=== PATIENT | female | born 1940 | race Caucasian/White ===

== ENCOUNTER 2022-07-08 12:25 | Emergency (ER) | payer OTHER ==
[~2022-07-08] VITALS: Ht 157.5 cm; Wt 73.5 kg
[2022-07-08 12:43] VITALS: BP_SYST 143
--- NOTE | 2022-07-08 12:50 | NUR ---
Pt brought by family, A&Ox4, pt presents to ER with bilateral foot pain/swelling, skin pink and warm, cap refill <3, VSS, will cont to monitor.
--- NOTE | 2022-07-08 14:17 | NUR ---
ER examining patient.
[2022-07-08] MEDS ORDERED: KETOROLAC TROMETHAMINE 30 MG VIAL IM ONE (14:30)
--- NOTE | 2022-07-08 15:07 | NUR ---
XRAYS BEING DONE AT BEDSIDE.
[2022-07-08 15:26] LABS: BASOPHILS % (AUTO) 0.5 % (0.0-2.0); EOSINOPHILS # (AUTO) 0.1 K/uL (0.0-0.4); EOSINOPHILS % (AUTO) 2.3 % (0.0-4.0); HEMATOCRIT 30.2 % (36-48); LYMPHOCYTES # (AUTO) 1.3 K/uL (1.0-5.5); LYMPHOCYTES % (AUTO) 21.5 % (20.5-51.5); MEAN CORPUSCULAR HEMOGLOBIN 32 pg (27-31); MEAN CORPUSCULAR HGB CONC 33 % (32-36); MEAN CORPUSCULAR VOLUME 96 fL (79.0-98.0); MONOCYTES # (AUTO) 0.5 K/uL (0.0-1.0); MONOCYTES % (AUTO) 7.5 % (1.7-9.3); NEUTROPHILS # (AUTO) 4.1 K/uL (1.8-7.7); NEUTROPHILS % (AUTO) 68.2 % (40.0-70.0); PLATELET COUNT (AUTO) 276 K/uL (130-430); RED BLOOD CELL COUNT(AUTO) 3.13 MIL/uL (4.2-6.2); RED CELL DISTRIBUTION WIDTH 14.1 % (9.0-15.0)
[2022-07-08 15:58] LABS: ANION GAP 10 (5-15); CHLORIDE 105 mmol/L (98-107); CREATININE 1.11 mg/dL (0.55-1.30); GLUCOSE 102 mg/dL (70-99); UREA NITROGEN, BLOOD 25 mg/dL (8-21)
[2022-07-08 16:06] LABS: ALANINE AMINOTRANSFERASE 14 U/L (12-78); ALBUMIN 3.6 g/dL (3.4-4.8); ASPARTATE AMINOTRANSFERASE 13 U/L (10-37); C-REACTIVE PROTEIN QUANT 4.4 mg/dL (0-0.5); TOTAL BILIRUBIN 0.2 mg/dL (0.0-1.0); URIC ACID 7.8 mg/dL (2.4-7.0)
[2022-07-08 16:08] LABS: ERYTHROCYTE SEDIMENTATION RATE 63 MM/HR (0-20)
[2022-07-08] MEDS ORDERED: HYDR-3917 PO (16:19)
[2022-07-08] MEDS ORDERED: IBUP-1969 PO (16:19)
--- NOTE | 2022-07-08 16:30 | NUR ---
Patient given written and verbal discharge instructions and verbalizes understanding. ER MD discussed with patient the results and treatment provided. Patient in stable condition. ID arm band removed. Patient educated on pain management and to follow up with PMD. Opportunity for questions provided and answered. Medication side effect fact sheet provided.
[2022-07-08 17:24] VITALS: BP_SYST 164
== END 2022-07-08 16:30 | disposition home or self-care (01) ==
LOC: SED 12:25
DX: M10.9 Gout, unspecified (principal); J45.909 Unspecified asthma, uncomplicated; I10 Essential (primary) hypertension; Z79.899 Other long term (current) drug therapy
CPT/HCPCS: 99284; 80053; 84550; 85025; 85651; 86140; 36415; 73610; J1885

== ENCOUNTER 2023-07-09 16:54 | Inpatient (IN) | payer OTHER ==
[~2023-07-09] VITALS: Ht 154.9 cm; Wt 56.8 kg
[~2023-07-09 16:54] MED LIST: HYDR-3917 PO; IBUP-1969 PO
[2023-07-09 16:56] VITALS: BP_SYST 151; PULSE 108; RESP 18; TEMP 98.4; O2SAT 96
[2023-07-09] MEDS: ALBUTEROL SULFATE 0.083% 2.5 MG/3 ML VIAL.NEB INH ONE (17:17)
[2023-07-09] MEDS: IPRATROPIUM BROM 0.5 MG/2.5 ML VIAL.NEB (ATROVENT) INH ONE (17:17)
[2023-07-09 17:46] LABS: BASOPHILS % (AUTO) 0.5 % (0.0-2.0); EOSINOPHILS % (AUTO) 0.9 % (0.0-4.0); LYMPHOCYTES # (AUTO) 1.1 K/uL (1.0-5.5); LYMPHOCYTES % (AUTO) 19.3 % (20.5-51.5); MEAN CORPUSCULAR HEMOGLOBIN 22 pg (27-31); MEAN CORPUSCULAR HGB CONC 31 % (32-36); MEAN CORPUSCULAR VOLUME 71 fL (79.0-98.0); MONOCYTES # (AUTO) 0.4 K/uL (0.0-1.0); MONOCYTES % (AUTO) 6.6 % (1.7-9.3); NEUTROPHILS # (AUTO) 4.2 K/uL (1.8-7.7); NEUTROPHILS % (AUTO) 72.7 % (40.0-70.0); PLATELET COUNT (AUTO) 312 K/uL (130-430); WHITE BLOOD COUNT (AUTO) 5.7 K/uL (4.8-10.8)
[2023-07-09 17:58] LABS: HEMOGLOBIN 4.5 g/dL (12.0-16.0)
[2023-07-09 17:59] LABS: HEMATOCRIT 14.9 % (36-48)
[2023-07-09 18:15] LABS: ALANINE AMINOTRANSFERASE 15 U/L (12-78); ALBUMIN 2.9 g/dL (3.4-4.8); ANION GAP 7 (5-15); ASPARTATE AMINOTRANSFERASE 12 U/L (10-37); CALCIUM 7.9 mg/dL (8.4-11.0); CARBON DIOXIDE 24 mmol/L (23-29); CHLORIDE 109 mmol/L (98-107); CREATININE 0.75 mg/dL (0.55-1.30); GLUCOSE 101 mg/dL (74-106); SODIUM SERUM 140 mmol/L (136-145); TOTAL BILIRUBIN 0.2 mg/dL (0.0-1.0); TOTAL PROTEIN, SERUM 6.7 g/dL (6.4-8.3); UREA NITROGEN, BLOOD 16 mg/dL (8-21)
[2023-07-09 18:19] LABS: INR 1.1 (0.8-1.2); PROTHROMBIN TIME 11.3 SECS (9.5-12.5)
[2023-07-09 18:20] LABS: BILIRUBIN,DIRECT 0.1 mg/dL (0.0-0.3)
[2023-07-09 18:39] LABS: COVID19 ANTIGEN SOFIA FIA NEGATIVE (NEGATIVE)
[2023-07-09 18:48] LABS: INFLUENZA TYPE A Negative (NEGATIVE); INFLUENZA TYPE B NEGATIVE (NEGATIVE)
[2023-07-09] MEDS ORDERED: ZOLPIDEM TARTRATE 5 MG TABLET PO PRN (19:00)
[2023-07-09] MEDS ORDERED: MUPIROCIN 2% TOPICAL OINTMENT 22 GM NS PRN (19:00)
[2023-07-09] MEDS ORDERED: POTASSIUM CHLORIDE 20 MEQ TABLET.ER PO PRN (19:00)
[2023-07-09] MEDS ORDERED: DOCUSATE SODIUM 100 MG CAPSULE PO PRN (19:00)
[2023-07-09] MEDS ORDERED: LORazepam 2 MG/ML VIAL IVP PRN (19:00)
[2023-07-09] MEDS ORDERED: MORPHINE 2 MG/ML INJ. SYRINGE IVP PRN ×2 (19:00)
[2023-07-09] MEDS ORDERED: ONDANSETRON HCL 4 MG/2 ML VIAL IVP PRN (19:00)
[2023-07-09] MEDS ORDERED: ACETAMINOPHEN 500 MG TABLET PO PRN ×3 (19:30)
[2023-07-09 19:43] LABS: TOTAL IRON BIND. CAPACITY 366 ug/dL (250-450)
[2023-07-09 19:56] LABS: ANISOCYTOSIS 1+; HYPOCHROMASIA 3+; OVALOCYTES FEW; STOMATOCYTES FEW
[2023-07-09] MEDS: METOPROLOL TARTRATE 25 MG TABLET PO SCH (21:00)
[2023-07-09 21:04] LABS: BILIRUBIN,URINE NEGATIVE (NEGATIVE); BLOOD, URINE 1+ (NEGATIVE); CLARITY/URINE CLEAR (CLEAR); COLOR,URINE YELLOW (YELLOW); GLUCOSE,URINE NEGATIVE (NEGATIVE); KETONES,URINE NEGATIVE (NEGATIVE); LEUKOCYTE ESTERASE ,URINE NEGATIVE (NEGATIVE); NITRITE, URINE NEGATIVE (NEGATIVE); PROTEIN URINE NEGATIVE (NEGATIVE); UROBILINOGEN,URINE 0.2 (0.2-1.0)
[2023-07-09] MEDS: FERROUS SULFATE 325 MG TABLET.DR PO SCH (21:23)
[2023-07-09] MEDS: METOPROLOL TARTRATE 25 MG TABLET PO ONE (21:24)
[2023-07-09] MEDS: D5NS 1,000 ML IV SCH (21:25)
[2023-07-09 21:55] VITALS: BP_SYST 142; PULSE 108; O2SAT 95
[2023-07-09 22:31] LABS: BACTERIA,URINE FEW /HPF (None Seen); MUCUS,URINE 2+ /LPF (None Seen); WBC,URINE 0-3 /HPF (0-3)
[2023-07-10] MEDS: SOD FERRIC GLUC COMPLEX/SUC 125 MG in NS 100 ML IV SCH (02:28)
[2023-07-10] MEDS: SOD FERRIC GLUC COMPLEX/SUC 62.5 MG/5 ML VIAL (FERRLECIT) IV ONE (02:36)
[2023-07-10 06:15] LABS: BASOPHILS % (AUTO) 0.5 % (0.0-2.0); EOSINOPHILS # (AUTO) 0.1 K/uL (0.0-0.4); HEMATOCRIT 26.5 % (36-48); HEMOGLOBIN 8.6 g/dL (12.0-16.0); LYMPHOCYTES # (AUTO) 1.3 K/uL (1.0-5.5); LYMPHOCYTES % (AUTO) 21.4 % (20.5-51.5); MEAN CORPUSCULAR HEMOGLOBIN 25 pg (27-31); MEAN CORPUSCULAR HGB CONC 33 % (32-36); MEAN CORPUSCULAR VOLUME 78 fL (79.0-98.0); MONOCYTES # (AUTO) 0.5 K/uL (0.0-1.0); NEUTROPHILS # (AUTO) 4.3 K/uL (1.8-7.7); NEUTROPHILS % (AUTO) 69.1 % (40.0-70.0); PLATELET COUNT (AUTO) 261 K/uL (130-430); RED BLOOD CELL COUNT(AUTO) 3.41 MIL/uL (4.2-6.2); RED CELL DISTRIBUTION WIDTH 20.9 % (9.0-15.0); WHITE BLOOD COUNT (AUTO) 6.2 K/uL (4.8-10.8)
[2023-07-10 06:34] LABS: ANION GAP 10 (5-15); CARBON DIOXIDE 20 mmol/L (23-29); CHLORIDE 109 mmol/L (98-107); CREATININE 0.82 mg/dL (0.55-1.30); GLUCOSE 107 mg/dL (74-106); POTASSIUM 3.8 mmol/L (3.5-5.1); SODIUM SERUM 139 mmol/L (136-145); UREA NITROGEN, BLOOD 18 mg/dL (8-21)
[2023-07-10] MEDS: MAGNESIUM SULFATE 50 ML IV PRN (06:54)
[2023-07-10] MEDS: IPRATROPIUM/ALBUTEROL SULFATE 3 ML AMPUL.NEB (DUONEB) INH PRN (07:12)
[2023-07-10 07:13] VITALS: O2SAT 95
[2023-07-10] MEDS ORDERED: FUROSEMIDE 20 MG/2 ML VIAL IVP SCH (09:00)
[2023-07-10] MEDS: PANTOPRAZOLE SODIUM 40 MG/VIAL (PROTONIX) IVP SCH (10:10)
[2023-07-10 10:29] VITALS: BP_SYST 138; PULSE 88; RESP 18; TEMP 97.2; O2SAT 98
[2023-07-10] MEDS ORDERED: BUDESONIDE/FORMOTEROL 160-4.5 mCg, 6 GM INHALER INH SCH (10:30)
[2023-07-10 12:00] VITALS: BP_SYST 138; PULSE 88; RESP 18; TEMP 97.2; O2SAT 98
[2023-07-10 12:44] LABS: RED CELL DISTRIBUTION WIDTH 19.5 % (9.0-15.0)
[2023-07-10] MEDS ORDERED: HYDROcodone/ACETAMIN 5-325 MG TAB (NORCO/ VICODIN) PO PRN (15:15)
[2023-07-10] MEDS: ALBUTEROL SULFATE 0.083% 2.5 MG/3 ML VIAL.NEB INH SCH (15:31)
[2023-07-10 16:00] VITALS: BP_SYST 133; PULSE 85; RESP 18; TEMP 97.3; O2SAT 98
[2023-07-10] MEDS: BISACODYL 5 MG TABLET.DR (DULCOLAX) PO ONE (17:21)
[2023-07-10] MEDS: GOLYTELY / COLYTE SOLUTION 4 LITERS PO ONE (17:21)
[2023-07-10] MEDS: MONTELUKAST 10 MG TABLET PO SCH (17:21)
[2023-07-10 19:30] VITALS: O2SAT 97
[2023-07-10 20:00] VITALS: BP_SYST 155; PULSE 98; RESP 18; TEMP 97.8; O2SAT 99
[2023-07-10] MEDS: BUDESONIDE 0.5 MG/2 ML AMPUL.NEB INH SCH (20:01)
[2023-07-10] MEDS: ATORVASTATIN 20 MG TABLET PO SCH (20:30)
[2023-07-11 02:07] VITALS: BP_SYST 144; PULSE 88; RESP 18; TEMP 97.6; O2SAT 99
[2023-07-11 06:07] LABS: BASOPHILS % (AUTO) 0.3 % (0.0-2.0); EOSINOPHILS # (AUTO) 0.2 K/uL (0.0-0.4); HEMATOCRIT 29.1 % (36-48); HEMOGLOBIN 9.2 g/dL (12.0-16.0); LYMPHOCYTES # (AUTO) 1.2 K/uL (1.0-5.5); LYMPHOCYTES % (AUTO) 13.1 % (20.5-51.5); MEAN CORPUSCULAR HEMOGLOBIN 25 pg (27-31); MEAN CORPUSCULAR HGB CONC 32 % (32-36); MEAN CORPUSCULAR VOLUME 78 fL (79.0-98.0); MONOCYTES # (AUTO) 0.6 K/uL (0.0-1.0); MONOCYTES % (AUTO) 6.9 % (1.7-9.3); NEUTROPHILS # (AUTO) 6.9 K/uL (1.8-7.7); NEUTROPHILS % (AUTO) 77.7 % (40.0-70.0); PLATELET COUNT (AUTO) 299 K/uL (130-430); RED BLOOD CELL COUNT(AUTO) 3.72 MIL/uL (4.2-6.2); RED CELL DISTRIBUTION WIDTH 20.7 % (9.0-15.0)
[2023-07-11 06:21] LABS: INR 1.1 (0.8-1.2); PROTHROMBIN TIME 11.3 SECS (9.5-12.5)
[2023-07-11 07:11] LABS: ANION GAP 11 (5-15); CALCIUM 8.8 mg/dL (8.4-11.0); CARBON DIOXIDE 22 mmol/L (23-29); CHLORIDE 105 mmol/L (98-107); CREATININE 0.77 mg/dL (0.55-1.30); GLUCOSE 99 mg/dL (74-106); POTASSIUM 3.3 mmol/L (3.5-5.1); SODIUM SERUM 138 mmol/L (136-145); UREA NITROGEN, BLOOD 7 mg/dL (8-21)
[2023-07-11 08:00] VITALS: BP_SYST 122; PULSE 105; RESP 18; TEMP 98.6; O2SAT 98
[2023-07-11] MEDS: ALLOPURINOL 100 MG TABLET (ZYLOPRIM) PO SCH (08:16)
[2023-07-11] MEDS: COLCHICINE 0.6 MG TABLET PO SCH (08:16)
[2023-07-11] MEDS: lisinopriL 20 MG TABLET PO SCH (08:16)
[2023-07-11 08:34] LABS: WHITE BLOOD COUNT (AUTO) 8.8 K/uL (4.8-10.8)
[2023-07-11 08:40] VITALS: O2SAT 98
[2023-07-11 11:06] LABS: FOLATE (FOLIC ACID) 13.6 ng/mL (>3.0)
[2023-07-11] MEDS: fentaNYL CITRATE/PF 100 MCG/2 ML AMP ONE (11:52)
[2023-07-11] MEDS: MIDAZOLAM HCL 5 MG/5 ML VIAL ONE (11:53)
[2023-07-11 12:00] VITALS: BP_SYST 120; PULSE 100; RESP 18; TEMP 98.1; O2SAT 98
[2023-07-11] MEDS ORDERED: FERR324T11 PO (15:59)
[2023-07-11] MEDS ORDERED: PANT40TA45 PO (15:59)
[2023-07-11 16:00] VITALS: BP_SYST 118; PULSE 99; RESP 18; TEMP 98.7; O2SAT 98
[2023-07-11] MEDS: POTASSIUM CHLORIDE 20 MEQ TABLET.ER PO ONE (16:13)
[2023-07-11 17:37] VITALS: BP_SYST 120; PULSE 98; RESP 18; TEMP 98.1; O2SAT 97
== END 2023-07-11 18:55 | disposition home or self-care (01) | DRG 811 ==
LOC: SED 16:54 → STU 19:04 → SMU 07-10 20:38
PROVIDERS: ADMIT General Practice; ATTEND General Practice
PROC: 30233N1 Transfusion of Nonautologous Red Blood Cells into Peripheral Vein, Percutaneous Approach (ICD-10-PCS; 2023-07-09)
PROC: 0DB78ZX Excision of Stomach, Pylorus, Via Natural or Artificial Opening Endoscopic, Diagnostic (ICD-10-PCS; principal; 2023-07-11 10:00)
DX: D50.9 Iron deficiency anemia, unspecified (principal); K25.4 Chronic or unspecified gastric ulcer with hemorrhage; J44.9 Chronic obstructive pulmonary disease, unspecified; E03.9 Hypothyroidism, unspecified; G40.909 Epilepsy, unspecified, not intractable, without status epilepticus; I10 Essential (primary) hypertension; E78.5 Hyperlipidemia, unspecified; K44.9 Diaphragmatic hernia without obstruction or gangrene; Z20.822 Contact with and (suspected) exposure to COVID-19
CPT/HCPCS: 36415; 43239; 71045; 80048; 80076; 81000; 81001; 81015; 82272; 82607; 82728; 82746; 83037; 83540; 83550; 83605; 83690; 83735; 83880; 84484; 85025; 85610; 85730; 86886; 86900; 86901; 86920; 88305; 88312; 88313; 93005; 93306; 94640; 94664; 94760; 97116-GP; 97530-GP; 99291; C9113; G0378; J1940; J2250; J2916; J3010; J3475; J7626; P9021

== ENCOUNTER 2023-10-19 09:44 | Inpatient (IN) | payer OTHER ==
[~2023-10-19] VITALS: Ht 154.9 cm; Wt 52.2 kg
[~2023-10-19 09:44] MED LIST changes: +FERR324T11 PO; -HYDR-3917 PO; -IBUP-1969 PO; +PANT40TA45 PO
[2023-10-19 09:45] VITALS: BP_SYST 191; PULSE 126; RESP 20; TEMP 97.9; O2SAT 96
[2023-10-19] MEDS: dilTIAZem HCL IVP 5 MG/ML VIAL IVP ONE (10:17)
[2023-10-19 10:18] LABS: BASOPHILS % (AUTO) 0.2 % (0.0-2.0); EOSINOPHILS # (AUTO) 0.1 K/uL (0.0-0.4); EOSINOPHILS % (AUTO) 2.4 % (0.0-4.0); HEMATOCRIT 34.6 % (36-48); HEMOGLOBIN 11.4 g/dL (12.0-16.0); LYMPHOCYTES # (AUTO) 1.1 K/uL (1.0-5.5); LYMPHOCYTES % (AUTO) 28.4 % (20.5-51.5); MEAN CORPUSCULAR HEMOGLOBIN 29 pg (27-31); MEAN CORPUSCULAR HGB CONC 33 % (32-36); MEAN CORPUSCULAR VOLUME 88 fL (79.0-98.0); MONOCYTES # (AUTO) 0.3 K/uL (0.0-1.0); MONOCYTES % (AUTO) 6.9 % (1.7-9.3); NEUTROPHILS # (AUTO) 2.5 K/uL (1.8-7.7); NEUTROPHILS % (AUTO) 62.1 % (40.0-70.0); PLATELET COUNT (AUTO) 179 K/uL (130-430); RED BLOOD CELL COUNT(AUTO) 3.92 MIL/uL (4.2-6.2); RED CELL DISTRIBUTION WIDTH 13.3 % (9.0-15.0)
[2023-10-19] MEDS: DILTIAZEM HCL 60 MG TABLET PO ONE (10:18)
[2023-10-19 10:30] LABS: INR 1.1 (0.8-1.2); PROTHROMBIN TIME 11.5 SECS (9.5-12.5)
[2023-10-19 10:34] LABS: ANION GAP 11 (5-15); CALCIUM 9.1 mg/dL (8.4-11.0); CARBON DIOXIDE 25 mmol/L (23-29); CHLORIDE 104 mmol/L (98-107); CREATININE 0.76 mg/dL (0.55-1.30); GLUCOSE 130 mg/dL (74-106); SODIUM SERUM 140 mmol/L (136-145); UREA NITROGEN, BLOOD 14 mg/dL (8-21)
[2023-10-19 10:36] LABS: POTASSIUM 2.7 mmol/L (3.5-5.1)
[2023-10-19] MEDS ORDERED: MORPHINE 2 MG/ML INJ. SYRINGE IVP PRN (12:00)
[2023-10-19] MEDS ORDERED: ACETAMINOPHEN 325 MG TABLET PO PRN (12:00)
[2023-10-19] MEDS ORDERED: ONDANSETRON HCL 4 MG/2 ML VIAL IVP PRN (12:00)
[2023-10-19] MEDS ORDERED: LORazepam 2 MG/ML VIAL IVP PRN (12:00)
[2023-10-19] MEDS: POTASSIUM CHLORIDE 20 MEQ TABLET.ER PO ONE ×2 (12:38→17:49)
[2023-10-19] MEDS ORDERED: CARB200T8 PO (13:01)
[2023-10-19] MEDS ORDERED: COLC0.6C3 PO (13:01)
[2023-10-19] MEDS ORDERED: MONT-40 PO (13:01)
[2023-10-19] MEDS ORDERED: VITD2000 PO (13:01)
[2023-10-19] MEDS ORDERED: ATOR20TA64 PO (13:01)
[2023-10-19] MEDS ORDERED: ALLO100T PO (13:01)
[2023-10-19] MEDS ORDERED: LISI40TA13 PO (13:01)
[2023-10-19 14:12] VITALS: BP_SYST 155; PULSE 107; RESP 16; TEMP 97.8; O2SAT 97
[2023-10-19 14:32] VITALS: O2SAT 97
[2023-10-19 14:43] VITALS: BP_SYST 155; PULSE 107; RESP 17; TEMP 97.8
[2023-10-19] MEDS: METOPROLOL TARTRATE 25 MG TABLET PO ONE (15:25)
[2023-10-19] MEDS: PROPRANOLOL HCL 10 MG TABLET (INDERAL) PO ONE (15:25)
[2023-10-19 16:02] VITALS: BP_SYST 171; PULSE 105; RESP 16; TEMP 97.7; O2SAT 94
[2023-10-19] MEDS: MONTELUKAST 10 MG TABLET PO SCH (17:49)
[2023-10-19] MEDS ORDERED: *LOVENOX 1MG/KG Q12H/PHARMACY XX PRN (18:30)
[2023-10-19] MEDS: ENOXAPARIN SODIUM 60 MG/0.6 ML SYRINGE SUBCUT ONE (18:46)
[2023-10-19] MEDS: ASPIRIN 325 MG TABLET PO ONE (18:46)
[2023-10-19 20:00] VITALS: BP_SYST 153; PULSE 92; RESP 17; TEMP 97.4; O2SAT 98
[2023-10-19] MEDS ORDERED: HEPARIN SODIUM,PORCINE 5,000 UNITS/ML VIAL SUBCUT SCH (21:00)
[2023-10-19] MEDS ORDERED: METOPROLOL TARTRATE 25 MG TABLET PO SCH (21:00)
[2023-10-19] MEDS: ATORVASTATIN 20 MG TABLET PO SCH (21:06)
[2023-10-19] MEDS: PROPRANOLOL HCL 10 MG TABLET (INDERAL) PO SCH (21:07)
[2023-10-20] VITALS (8 sets, daily range): BP systolic 128–157; PULSE 84–102; RESP 16–18; TEMP 96.9–98.1; O2SAT 96–99
[2023-10-20 06:34] LABS: BASOPHILS % (AUTO) 0.3 % (0.0-2.0); EOSINOPHILS # (AUTO) 0.1 K/uL (0.0-0.4); EOSINOPHILS % (AUTO) 1.1 % (0.0-4.0); HEMATOCRIT 33.7 % (36-48); HEMOGLOBIN 11.1 g/dL (12.0-16.0); LYMPHOCYTES # (AUTO) 1.3 K/uL (1.0-5.5); LYMPHOCYTES % (AUTO) 18.7 % (20.5-51.5); MEAN CORPUSCULAR HEMOGLOBIN 29 pg (27-31); MEAN CORPUSCULAR HGB CONC 33 % (32-36); MEAN CORPUSCULAR VOLUME 88 fL (79.0-98.0); MONOCYTES # (AUTO) 0.5 K/uL (0.0-1.0); MONOCYTES % (AUTO) 7.2 % (1.7-9.3); NEUTROPHILS # (AUTO) 5.2 K/uL (1.8-7.7); NEUTROPHILS % (AUTO) 72.7 % (40.0-70.0); PLATELET COUNT (AUTO) 206 K/uL (130-430); RED BLOOD CELL COUNT(AUTO) 3.81 MIL/uL (4.2-6.2); RED CELL DISTRIBUTION WIDTH 13.3 % (9.0-15.0); WHITE BLOOD COUNT (AUTO) 7.1 K/uL (4.8-10.8)
[2023-10-20 06:57] LABS: ALANINE AMINOTRANSFERASE 20 U/L (12-78); ALBUMIN 2.8 g/dL (3.4-4.8); ANION GAP 10 (5-15); ASPARTATE AMINOTRANSFERASE 41 U/L (10-37); CALCIUM 9.1 mg/dL (8.4-11.0); CARBON DIOXIDE 24 mmol/L (23-29); CHLORIDE 105 mmol/L (98-107); FREE T4 (FREE THYROXINE) 3.6 ng/dL (0.6-1.6); GLUCOSE 107 mg/dL (74-106); POTASSIUM 4.5 mmol/L (3.5-5.1); SODIUM SERUM 139 mmol/L (136-145); TOTAL BILIRUBIN 0.5 mg/dL (0.0-1.0); UREA NITROGEN, BLOOD 19 mg/dL (8-21)
[2023-10-20 07:47] LABS: ERYTHROCYTE SEDIMENTATION RATE 22 MM/HR (0-20)
[2023-10-20] MEDS: PANTOPRAZOLE SODIUM 40 MG TAB PO SCH (08:40)
[2023-10-20] MEDS: ENOXAPARIN SODIUM 60 MG/0.6 ML SYRINGE SUBCUT SCH (08:41)
[2023-10-20] MEDS ORDERED: lisinopriL 20 MG TABLET PO SCH (09:00)
[2023-10-20] MEDS: IPRATROPIUM/ALBUTEROL SULFATE 3 ML AMPUL.NEB (DUONEB) INH PRN (09:01)
[2023-10-20] MEDS: methIMAzole 5 MG TABLET PO ONE (14:34)
[2023-10-20] MEDS: ASPIRIN 81 MG TAB.CHEW PO ONE (17:08)
[2023-10-20] MEDS: PROPRANOLOL HCL 10 MG TABLET (INDERAL) PO SCH (21:15)
[2023-10-20] MEDS: methIMAzole 5 MG TABLET PO SCH (21:18)
[2023-10-21] VITALS (7 sets, daily range): BP systolic 119–136; PULSE 91–108; RESP 12–19; TEMP 97.5–99; O2SAT 94–98
[2023-10-21 06:47] LABS: ALANINE AMINOTRANSFERASE 11 U/L (12-78); ALBUMIN 2.6 g/dL (3.4-4.8); ANION GAP 12 (5-15); ASPARTATE AMINOTRANSFERASE 17 U/L (10-37); CALCIUM 8.9 mg/dL (8.4-11.0); CARBON DIOXIDE 26 mmol/L (23-29); CHLORIDE 108 mmol/L (98-107); CREATININE 0.74 mg/dL (0.55-1.30); GLUCOSE 100 mg/dL (74-106); PHOSPHORUS 4.6 mg/dL (2.7-4.5); POTASSIUM 3.9 mmol/L (3.5-5.1); SODIUM SERUM 146 mmol/L (136-145); TOTAL BILIRUBIN 0.5 mg/dL (0.0-1.0); TOTAL PROTEIN, SERUM 6.5 g/dL (6.4-8.3); UREA NITROGEN, BLOOD 16 mg/dL (8-21)
[2023-10-21 06:51] LABS: BASOPHILS % (AUTO) 0.3 % (0.0-2.0); EOSINOPHILS # (AUTO) 0.1 K/uL (0.0-0.4); HEMATOCRIT 31.3 % (36-48); HEMOGLOBIN 10.5 g/dL (12.0-16.0); LYMPHOCYTES # (AUTO) 1.7 K/uL (1.0-5.5); LYMPHOCYTES % (AUTO) 33.4 % (20.5-51.5); MEAN CORPUSCULAR HEMOGLOBIN 29 pg (27-31); MEAN CORPUSCULAR HGB CONC 34 % (32-36); MEAN CORPUSCULAR VOLUME 87 fL (79.0-98.0); MONOCYTES # (AUTO) 0.4 K/uL (0.0-1.0); MONOCYTES % (AUTO) 7.4 % (1.7-9.3); NEUTROPHILS # (AUTO) 2.9 K/uL (1.8-7.7); NEUTROPHILS % (AUTO) 56.9 % (40.0-70.0); PLATELET COUNT (AUTO) 161 K/uL (130-430); RED CELL DISTRIBUTION WIDTH 13.2 % (9.0-15.0); WHITE BLOOD COUNT (AUTO) 5.1 K/uL (4.8-10.8)
[2023-10-21] MEDS: ASPIRIN 81 MG TAB.CHEW PO SCH (09:36)
[2023-10-21] MEDS: ATORVASTATIN 20 MG TABLET PO SCH (09:37)
[2023-10-22 01:19] VITALS: BP_SYST 123; PULSE 103; RESP 18; TEMP 98.6; O2SAT 97
[2023-10-22 07:41] VITALS: BP_SYST 100; PULSE 103; RESP 16; TEMP 98.9; O2SAT 96
[2023-10-22 07:44] VITALS: BP_SYST 100; PULSE 103; RESP 16; TEMP 98.9; O2SAT 96
[2023-10-22 08:06] LABS: T3 UPTAKE 41 % (24-39); THYROID PEROXIDASE (TPO) AB 113 IU/mL (0-34)
[2023-10-22 21:30] VITALS: BP_SYST 154; PULSE 109; RESP 18; TEMP 97.9; O2SAT 96
[2023-10-22] MEDS: METOPROLOL TARTRATE 25 MG TABLET PO SCH (23:23)
[2023-10-23 00:30] VITALS: BP_SYST 153; PULSE 106; RESP 18; TEMP 98.6; O2SAT 95
[2023-10-23 08:05] VITALS: BP_SYST 152; PULSE 100; RESP 19; TEMP 97.6; O2SAT 99
[2023-10-23 08:10] VITALS: O2SAT 98
[2023-10-23] MEDS: APIXABAN 2.5 MG TABLET PO SCH (08:54)
[2023-10-23] MEDS ORDERED: APIX2.5T PO (10:56)
[2023-10-23 11:27] VITALS: BP_SYST 112; PULSE 97; RESP 16; TEMP 97.6; O2SAT 95
[2023-10-23 12:10] VITALS: BP_SYST 112; PULSE 77; RESP 18; TEMP 97.9; O2SAT 98
== END 2023-10-23 12:40 | disposition home or self-care (01) | DRG 280 ==
LOC: SED 09:44 → STU 11:49 → UNDOADMIN 11:49 → STU 13:35 → UNDODISIN 10-22 12:05 → STU 10-22 20:07
PROVIDERS: ADMIT Internal Medicine; ATTEND Internal Medicine
DX: I21.4 Non-ST elevation (NSTEMI) myocardial infarction (principal); R65.11 Systemic inflammatory response syndrome (SIRS) of non-infectious origin with acute organ dysfunction; E44.0 Moderate protein-calorie malnutrition; E05.90 Thyrotoxicosis, unspecified without thyrotoxic crisis or storm; I48.91 Unspecified atrial fibrillation; E87.6 Hypokalemia; E78.5 Hyperlipidemia, unspecified; J45.909 Unspecified asthma, uncomplicated; I10 Essential (primary) hypertension; Z79.899 Other long term (current) drug therapy; Z68.21 Body mass index [BMI] 21.0-21.9, adult
CPT/HCPCS: 36415; 71045; 76536; 80048; 80053; 83735; 83880; 84100; 84439; 84443; 84479; 84484; 85025; 85610; 85651; 85730; 86376; 93005; 93306; 94664; 94760; 96374; 97116-GP; 97530-GP; 99285; G0378; J1650; J3490